=== PATIENT | male | born 1995 | race Caucasian/White ===

== ENCOUNTER 2020-03-07 16:07 | Emergency (ER) | payer OTHER ==
[2020-03-07] MEDS ORDERED: Lidocaine 1% PF 5 ML VIAL ONE (18:20)
== END 2020-03-07 19:26 | disposition home or self-care (01) ==
LOC: ERS 16:07
DX: S61.412A Laceration without foreign body of left hand, initial encounter (principal); F17.210 Nicotine dependence, cigarettes, uncomplicated; W26.0XXA Contact with knife, initial encounter
CPT/HCPCS: 12001